=== PATIENT | male | born 2000 | race Hispanic/Latino ===

== ENCOUNTER 2024-06-22 18:49 | Emergency (ER) | payer OTHER ==
[~2024-06-22] VITALS: Ht 190.5 cm; Wt 95.3 kg
[2024-06-22 18:58] VITALS: PULSE 69; RESP 16; TEMP 98
[2024-06-22] MEDS: DIPHENHYDRAMINE HCL INJ 50 MG/ML VIAL IV STA (19:10)
[2024-06-22] MEDS: METHYLPREDNISOLONE SOD SUCC 125 MG/2ML VIAL IV STA (19:10)
[2024-06-22] MEDS: SODIUM CHLORIDE 0.9% 1000ML 1,000 ML IV STA (19:10)
[2024-06-22 19:12] LABS: BASOPHILS % 0.4 % (0.0-1.0); EOSINOPHILS % 0.7 % (0.0-6.0); HEMATOCRIT 48.7 % (38.2-49.6); LYMPHOCYTES # (AUTO) 1.9 (1.0-3.2); LYMPHOCYTES % 34.9 % (18.0-39.1); MEAN CORPUSCULAR HEMOGLOBIN 30.8 pg (28-32); MEAN CORPUSCULAR HGB CONC 32.9 g/dL (31-35); MEAN CORPUSCULAR VOLUME 93.8 fL (81-99); MONOCYTES # (AUTO) 0.4 (0.2-0.8); MONOCYTES % 7.4 % (4.4-11.3); NEUTROPHILS % 56.4 % (38.7-80.0); PLATELET COUNT 191 x10e3/uL (140-360); RED BLOOD COUNT 5.19 x10e6/uL (4.3-5.7); RED CELL DISTRIBUTION WIDTH 13.1 % (11.7-14.4); WHITE BLOOD COUNT 5.38 x10e3/uL (4.8-10.8)
[2024-06-22] MEDS: METOCLOPRAMIDE HCL 10 MG/2ML VIAL IV STA (19:22)
[2024-06-22] MEDS: KETOROLAC TROMETHAMINE 30 MG/ML VIAL IV STA (19:23)
[2024-06-22 19:29] LABS: ALBUMIN 4.3 g/dL (3.5-5.0); ALBUMIN/GLOBULIN RATIO 1.3 (0.8-2.0); BILIRUBIN,TOTAL 0.3 mg/dL (0.2-1.2); CALCIUM 10.1 mg/dL (8.4-10.2); CREATININE, SERUM 1.29 mg/dL (0.72-1.25); TOTAL PROTEIN 7.6 g/dL (6.5-8.1)
[2024-06-22] MEDS ORDERED: FIORICET 50-301 EACH PO (20:20)
[2024-06-22 20:33] VITALS: BP 127/68; PULSE 80; RESP 17; TEMP 98.4; O2SAT 99
[2024-06-22] MEDS ORDERED: ONDANSETRON ODT4 MG PO (20:35)
== END 2024-06-22 20:34 | disposition home or self-care (01) ==
LOC: ER 19:04
DX: R51.9 Headache, unspecified (principal); R11.2 Nausea with vomiting, unspecified; R53.81 Other malaise
CPT/HCPCS: 36415; 70450; 80053; 85025; 99284; J1200; J1885; J2765; J2919; J7030